=== PATIENT | female | born 1975 | race Caucasian/White ===

== ENCOUNTER 2019-02-23 15:46 | Emergency (ER) | payer OTHER ==
[~2019-02-23] VITALS: Ht 154.9 cm; Wt 68.0 kg
[2019-02-23 16:15] LABS: *BILIRUBIN,URIN NEGATIVE (NEGATIVE); *BLOOD, URINE 1+ (NEGATIVE); *CLARITY,URINE CLEAR (CLEAR); *COLOR,URINE YELLOW (YELLOW); *KETONES,URINE NEGATIVE (NEGATIVE); *UROBILINOGEN,URINE 0.2 E.U./dl (NORMAL); LEUKOCYTE ESTERASE ,URINE NEGATIVE (NEGATIVE); NITRITE, URINE NEGATIVE (NEGATIVE); PH,URINE 5.5 (5.0-8.0); UGLUCOSE NEGATIVE (NEGATIVE)
[2019-02-23 16:22] LABS: BACTERIA,URINE MODERATE /HPF (NONE SEEN); SQUAMOUS EPITHELIAL CELL,UR FEW /HPF (NONE SEEN)
--- NOTE | 2019-02-23 16:33 | NUR ---
PT IS IN ROOM #1B. DR PARKINSON EVALUATED THE PT.
[2019-02-23] MEDS ORDERED: ONDANSETRON 4 MG/2 ML VIAL IV ONE (16:45)
[2019-02-23] MEDS ORDERED: IV NORMAL SALINE 1000 ML BAG IV ONE (16:45)
[2019-02-23] MEDS ORDERED: KETOROLAC TROMETHAMINE 15 MG INJ IV ONE (16:45)
[2019-02-23] MEDS ORDERED: KETOROLAC TROMETHAMINE 30 MG INJ ONE (16:48)
[2019-02-23] MEDS ORDERED: ONDANSETRON 4 MG/2 ML VIAL ONE (16:49)
[2019-02-23 16:50] LABS: BASOPHILS % (AUTO) 0.5 % (0.0-2.0); EOSINOPHILS # (AUTO) 0.1 K/uL (0.0-0.7); EOSINOPHILS % (AUTO) 0.8 % (0.0-7.0); HEMATOCRIT 39.7 % (31.2-41.9); HEMOGLOBIN 12.8 g/dL (10.9-14.3); MEAN CORPUSCULAR HEMOGLOBIN 25.9 uug (24.7-32.8); MEAN CORPUSCULAR HGB CONC 32 g/dL (32.3-35.6); MEAN CORPUSCULAR VOLUME 80.4 fL (75.5-95.3); MONOCYTES # (AUTO) 0.8 K/uL (2.0-10.0); MONOCYTES % (AUTO) 8.5 % (0.0-11.0); NEUTROPHILS # (AUTO) 6.5 K/uL (1.8-8.9); NEUTROPHILS % (AUTO) 69.2 % (38.5-71.5); PLATELET COUNT (AUTO) 253 K/uL (179-408); RED BLOOD CELL COUNT(AUTO) 4.94 MIL/uL (3.63-4.92); WHITE BLOOD COUNT (AUTO) 9.5 K/uL (3.8-11.8)
[2019-02-23 16:57] LABS: *URINE HCG, QUAL NEGATIVE (NEGATIVE)
[2019-02-23 16:58] LABS: CREATININE 0.7 mg/dL (0.6-1.3); POTASSIUM 3.6 mmol/L (3.5-5.1)
[2019-02-23 17:03] LABS: BILIRUBIN,DIRECT 0.1 mg/dL (0.0-0.2); BILIRUBIN,TOTAL 0.4 mg/dL (0.2-1.0); TOTAL PROTEIN, SERUM 7.2 g/dL (6.4-8.2)
[2019-02-23] MEDS ORDERED: TAMSULOSIN HCL 0.4 MG CAP.SR.24H ONE (17:44)
[2019-02-23] MEDS ORDERED: TAMSULOSIN HCL 0.4 MG CAP.SR.24H PO ONE (17:45)
[2019-02-23] MEDS ORDERED: MORPHINE SULFATE 4 MG/1 ML DISP.SYRIN IV ONE (17:45)
[2019-02-23] MEDS ORDERED: MORPHINE SULFATE 4 MG/1 ML DISP.SYRIN ONE (18:00)
--- NOTE | 2019-02-23 18:52 | NUR ---
PT WAS D/C'd TO HOME. D/C INSTRUCTIONS GIVEN TO THE PT.
[2019-02-23 18:53] VITALS: BP 130/56
== END 2019-02-23 18:54 | disposition home or self-care (01) ==
LOC: ER 15:47
DX: N20.0 Calculus of kidney (principal); R30.0 Dysuria
CPT/HCPCS: 36415; 76770; 80048; 80076; 81001; 84703; 85025; 96374; 96375; 99284; J1885; J2270; J2405; A4663; J7030

== ENCOUNTER 2019-09-30 19:38 | Emergency (ER) | payer OTHER ==
[~2019-09-30] VITALS: Ht 154.9 cm; Wt 65.8 kg
--- NOTE | 2019-09-30 19:45 | NUR ---
Patient c/o right flank pain radiating to RLQ for 2 days. Came in for worsening pain. Denies any N/V.
[2019-09-30 20:05] LABS: *BILIRUBIN,URIN NEGATIVE (NEGATIVE); *CLARITY,URINE CLEAR (CLEAR); *COLOR,URINE YELLOW (YELLOW); *KETONES,URINE NEGATIVE (NEGATIVE); *UROBILINOGEN,URINE 0.2 E.U./dl (NORMAL); LEUKOCYTE ESTERASE ,URINE NEGATIVE (NEGATIVE); NITRITE, URINE NEGATIVE (NEGATIVE); UGLUCOSE NEGATIVE (NEGATIVE)
[2019-09-30 20:09] LABS: *BLOOD, URINE NEGATIVE (NEGATIVE); *URINE HCG, QUAL NEGATIVE (NEGATIVE)
--- NOTE | 2019-09-30 20:11 | NUR ---
Dr. Gamez on bedside for MSE.
[2019-09-30] MEDS ORDERED: KETOROLAC TROMETHAMINE 30 MG INJ ONE (20:26)
[2019-09-30 20:29] LABS: BASOPHILS # (AUTO) 0.1 K/uL (0.0-8.0); BASOPHILS % (AUTO) 0.7 % (0.0-2.0); EOSINOPHILS # (AUTO) 0.1 K/uL (0.0-0.7); EOSINOPHILS % (AUTO) 1.9 % (0.0-7.0); HEMATOCRIT 39.6 % (31.2-41.9); HEMOGLOBIN 12.8 g/dL (10.9-14.3); LYMPHOCYTES # (AUTO) 2.9 K/uL (20.0-40.0); LYMPHOCYTES % (AUTO) 37.3 % (20.5-51.5); MEAN CORPUSCULAR HEMOGLOBIN 26.5 uug (24.7-32.8); MEAN CORPUSCULAR HGB CONC 32 g/dL (32.3-35.6); MEAN CORPUSCULAR VOLUME 82.3 fL (75.5-95.3); MONOCYTES # (AUTO) 0.6 K/uL (2.0-10.0); MONOCYTES % (AUTO) 7.6 % (0.0-11.0); NEUTROPHILS # (AUTO) 4.1 K/uL (1.8-8.9); NEUTROPHILS % (AUTO) 52.5 % (38.5-71.5); PLATELET COUNT (AUTO) 252 K/uL (179-408); RED BLOOD CELL COUNT(AUTO) 4.82 MIL/uL (3.63-4.92); WHITE BLOOD COUNT (AUTO) 7.7 K/uL (3.8-11.8)
[2019-09-30] MEDS ORDERED: IV NORMAL SALINE 1000 ML BAG IV ONE (20:30)
[2019-09-30] MEDS ORDERED: KETOROLAC TROMETHAMINE 30 MG INJ IVP ONE (20:30)
[2019-09-30 20:35] LABS: CARBON DIOXIDE 29 mmol/L (21-32); CHLORIDE 104 mmol/L (98-107); CREATININE 0.8 mg/dL (0.6-1.3); GLUCOSE 92 mg/dL (74-106); POTASSIUM 3.8 mmol/L (3.5-5.1); UREA NITROGEN, BLOOD 12 mg/dL (7-18)
[2019-09-30 20:41] LABS: ALANINE AMINOTRANSFERASE 25 U/L (14-59); ALKALINE PHOSPHATASE 44 U/L (50-136); ASPARTATE AMINOTRANSFERASE 15 U/L (15-37); BILIRUBIN,DIRECT < 0.1 mg/dL (0.0-0.2); BILIRUBIN,TOTAL 0.2 mg/dL (0.2-1.0); TOTAL PROTEIN, SERUM 6.9 g/dL (6.4-8.2)
--- NOTE | 2019-09-30 21:14 | NUR ---
Inform Dr. Gamez patient still has right flank pain 02/20.
[2019-09-30] MEDS ORDERED: OXYCODONE/APAP 5-325 MG TABLET PO ONE (21:15)
[2019-09-30] MEDS ORDERED: OXYCODONE/APAP 5-325 MG TABLET ONE (21:16)
--- NOTE | 2019-09-30 21:20 | NUR ---
Dr. Gamez on bedside.
--- NOTE | 2019-09-30 21:41 | NUR ---
Dr. Gamez on bedside.
--- NOTE | 2019-09-30 22:00 | NUR ---
Patient discharged to home in stable conditon. Written and verbal after care instructions given. Patient verbalizes understanding of instructions. Pt ambulated out of the ER with steady gait. All belongings with pt.
[2019-09-30 22:07] VITALS: BP 131/90
== END 2019-09-30 22:00 | disposition home or self-care (01) ==
LOC: ER 19:42
DX: N20.0 Calculus of kidney (principal)
CPT/HCPCS: 36415; 76705; 76770; 80048; 80076; 81001; 84703; 85025; 96374; 99284; J1885; A4663; J7030

== ENCOUNTER 2021-05-17 20:53 | Emergency (ER) | payer OTHER ==
[~2021-05-17] VITALS: Ht 152.4 cm; Wt 65.8 kg
--- NOTE | 2021-05-17 21:15 | NUR ---
MD Kenney in room to do MSE.
[2021-05-17 21:24] LABS: *BILIRUBIN,URIN NEGATIVE (NEGATIVE); *BLOOD, URINE NEGATIVE (NEGATIVE); *CLARITY,URINE CLEAR (CLEAR); *COLOR,URINE YELLOW (YELLOW); *KETONES,URINE NEGATIVE (NEGATIVE); *UROBILINOGEN,URINE 0.2 E.U./dl (NORMAL); LEUKOCYTE ESTERASE ,URINE NEGATIVE (NEGATIVE); NITRITE, URINE NEGATIVE (NEGATIVE); UGLUCOSE NEGATIVE (NEGATIVE)
[2021-05-17 21:25] LABS: *URINE HCG, QUAL NEGATIVE (NEGATIVE)
[2021-05-17] MEDS ORDERED: MAG HYDROX/AL HYDROX/SIMETH 30 ML LIQUID UDC PO ONE (21:30)
[2021-05-17] MEDS ORDERED: DICYCLOMINE HCL LIQ 10 MG/5 ML UDC PO ONE (21:30)
[2021-05-17] MEDS ORDERED: LIDOCAINE VISCUS 2% 15 ML UDC MM ONE (21:30)
[2021-05-17 21:36] LABS: HEMATOCRIT 41.5 % (31.2-41.9); MEAN CORPUSCULAR HEMOGLOBIN 26.3 uug (24.7-32.8); MEAN CORPUSCULAR VOLUME 80.5 fL (75.5-95.3); PLATELET COUNT (AUTO) 274 K/uL (179-408)
[2021-05-17 21:40] LABS: POTASSIUM 3.5 mmol/L (3.5-5.1)
[2021-05-17 21:41] LABS: CREATININE 0.9 mg/dL (0.6-1.3)
[2021-05-17 21:46] LABS: BILIRUBIN,DIRECT 0.1 mg/dL (0.0-0.2); BILIRUBIN,TOTAL 0.2 mg/dL (0.2-1.0); TOTAL PROTEIN, SERUM 7.2 g/dL (6.4-8.2)
[2021-05-17] MEDS ORDERED: LIDOCAINE VISCUS 2% 15 ML UDC ONE (22:01)
[2021-05-17] MEDS ORDERED: DICYCLOMINE HCL LIQ 10 MG/5 ML UDC ONE (22:02)
[2021-05-17] MEDS ORDERED: MAGNESIUM HYDROXIDE 30 ML LIQUID UDC ONE (22:02)
--- NOTE | 2021-05-17 22:14 | NUR ---
U/S tech in room to do U/S on patient.
--- NOTE | 2021-05-17 22:30 | NUR ---
Patient states improvement in abdominal pain after administration of medication.
--- NOTE | 2021-05-17 23:28 | NUR ---
Patient is resting comfortably in bed with eyes closed, no acute distress noted.
[2021-05-17] MEDS ORDERED: FAMOTIDINE 20 MG TABLET PO ONE (23:45)
[2021-05-17] MEDS ORDERED: FAMO-132 PO (23:50)
[2021-05-17] MEDS ORDERED: FAMOTIDINE 20 MG TABLET ONE (23:50)
[2021-05-17 23:55] VITALS: BP 129/88
--- NOTE | 2021-05-17 23:55 | NUR ---
Patient discharged to home in stable condition. Written and verbal after care instructions given. Patient verbalizes understanding of instructions. Stressed follow up or return to ER for worsening s/s. Patient ambulates with steady gait, V/S stable, and left with all belongings.
== END 2021-05-17 23:55 | disposition home or self-care (01) ==
LOC: ER 20:57
DX: R10.13 Epigastric pain (principal); N20.0 Calculus of kidney; Z84.1 Family history of disorders of kidney and ureter
CPT/HCPCS: 36415; 83690; 84703; 85025; 93005; A4663

== ENCOUNTER 2025-02-23 09:37 | Emergency (ER) | payer OTHER ==
[~2025-02-23] VITALS: Ht 154.9 cm; Wt 68.0 kg
[~2025-02-23 09:37] MED LIST: FAMO-132 PO; OMEP20TA20 PO; ONDA4TAB11 PO
[2025-02-23 10:15] LABS: BASOPHILS # (AUTO) 0.1 K/UL (0.0-0.2); BASOPHILS % (AUTO) 0.7 % (0.0-2.0); EOSINOPHILS # (AUTO) 0.3 K/uL (0.0-0.7); EOSINOPHILS % (AUTO) 2.9 % (0.0-7.0); HEMATOCRIT 33.5 % (31.2-41.9); HEMOGLOBIN 10.8 g/dL (10.9-14.3); LYMPHOCYTES # (AUTO) 2.2 K/uL (0.8-4.8); LYMPHOCYTES % (AUTO) 21.8 % (20.5-51.5); MEAN CORPUSCULAR HEMOGLOBIN 26.1 uug (24.7-32.8); MEAN CORPUSCULAR HGB CONC 32 g/dL (32.3-35.6); MEAN CORPUSCULAR VOLUME 80.7 fL (75.5-95.3); MONOCYTES # (AUTO) 0.7 K/uL (0.1-1.30); NEUTROPHILS # (AUTO) 6.8 K/uL (1.8-8.9); NEUTROPHILS % (AUTO) 67.6 % (38.5-71.5); PLATELET COUNT (AUTO) 399 K/uL (179-408); RED BLOOD CELL COUNT(AUTO) 4.15 MIL/uL (3.63-4.92); RED CELL DISTRIBUTION WIDTH 14.7 % (12.3-17.7)
[2025-02-23 10:22] LABS: DIFFERENTIAL COMMENT 1
[2025-02-23 10:27] LABS: CALCIUM 8.3 mg/dL (8.5-10.1); CREATININE 0.8 mg/dL (0.6-1.3); POTASSIUM 3.6 mmol/L (3.5-5.1)
[2025-02-23] MEDS ORDERED: OXYCODONE HCL 5 MG TABLET ONE (11:12)
[2025-02-23] MEDS: OXYCODONE HCL 5 MG TABLET PO ONE (11:13)
[2025-02-23] MEDS ORDERED: OXYC-128 PO (12:25)
[2025-02-23 12:36] VITALS: BP 120/76; O2SAT 99
[2025-02-25] MEDS ORDERED: HYDR-4209 PO (14:51)
== END 2025-02-23 12:37 | disposition home or self-care (01) ==
LOC: ER 09:43
DX: G89.18 Other acute postprocedural pain (principal); Z79.899 Other long term (current) drug therapy; Z88.7 Allergy status to serum and vaccine
CPT/HCPCS: 36415; 85025; 85730; A4606; A4663